=== PATIENT | male | born 1950 | race Caucasian/White ===

== ENCOUNTER 2018-10-18 16:55 | Inpatient (IN) ==
[2018-10-18] MEDS ORDERED: Ondansetron 4 MG/2 ML VIAL IVP PRN (20:46)
[2018-10-18] MEDS ORDERED: Naloxone 0.4 MG/ML INJ IVP PRN (20:46)
[2018-10-18] MEDS ORDERED: Acetaminophen 325 MG TABLET PO PRN (20:46)
[2018-10-18] MEDS ORDERED: *HR* HYDROcodone/Acet 5/325 mg TABLET PO PRN (20:46)
[2018-10-18] MEDS ORDERED: Albuterol 2.5 MG/3 ML NEBULIZER IH PRN (20:46)
[2018-10-18] MEDS ORDERED: Vancomycin 0 MG in 0.9 % Sodium Chloride 250 ML IVPB SCH (21:00)
[2018-10-18] MEDS ORDERED: Levofloxacin 750 MG/150 ML 750 MG/150 ML BAG IVPB SCH (21:00)
--- NOTE | 2018-10-18 21:01 | Internal Med History&Physical ---
Date of Encounter: 10/18/18 Time of Encounter: 19:50 Internal Medicine - H&P: HPI Chief complaint: right flank pain; dysuria Admitted From: Hospital to Hospital Transfer Plans for Post Hospital Care: Home History of present illness: Mr. Pettit is a 68 year old male who presents in transfer from [facility] ER for urolithiasis with hydronephrosis. He will need urologic intervention. 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 Upon arrival to the floor, I saw patient and discussed with him and his family the history of events. Patient was just discharged from [facility] 2 days ago after recovering from surgery from a cecal volvulus. Per patient and family, his postoperative course was uneventful. However, he did develop some pneumonia and has been on antibiotics postoperatively for pneumonia. He was feeling well until early this morning when he had sudden onset of right-sided flank pain, nausea, dysuria, and decreased urine output. Pain radiated from his right flank to his mid back and down to his right groin. He therefore came to the ER at [facility] in [place] where he had initial CT scan and blood work suggesting 8 x 5 mm UVJ stone with some associated hydronephrosis. He also has some postoperative changes and his the small bowel. There is also CT evidence confirming right lower lobe pneumonia. He denies any fevers or chills. He has been coughing productively sputum and has had some wheezing. He has been on oral antibiotics at home with improvement in his pneumonia symptoms. He denies any vomiting or diarrhea. He has had dry heaves and significant nausea, however. Pain is tolerable at this time. He denies any gross hematuria. He denies any prior history of kidney stones. Because of lack of urologic support at [facility], he was transferred here to [place] for urologic intervention and ongoing medical care. Past Med Surg Social Fam HX - Past Medical History Attestation: Yes The following information was validated with the patient. Source: patient, old records reviewed, obtained from family, other ([facility] ER records) Medical history: COPD, hypertension Additional medical history: heart murmor Psychiatric history: no psych history - Past Surgical History Surgical History: other (cecovolvulus) Additional surgical history: Left cheek - Social History Smoking Status: Current every day smoker Packs per day: 1 Smokeless Tobacco Status: No Alcohol use: rarely Drug use: none Current living situation: Home Activity Level: Independent ambulation Recent Out of Country Travel Within the Last 8 Weeks: No - Family History Mother Age: 93 Living Status: Still Living Hx Family Cancer: Yes Father Age at : 57 Cause of : war Sister Age: 70 Living Status: Still Living Internal Medicine - H&P: Meds Albuterol Sulfate [Albuterol Inhaler] 2 puff IH DAILY 06/26/18 [History] Cholecalciferol (D-3) [Vitamin D] 1,000 unit PO DAILY 06/26/18 [History] Losartan Potassium [Cozaar] 25 mg PO DAILY 06/26/18 [History] Tiotropium [place] [Spiriva Respimat] 2.5 gm IH DAILY 06/26/18 [History] Allergy/AdvReac Type Severity Reaction Status Date / Time No Known Allergies Allergy Unverified 02/20/18 11:07 - Constitutional Constitutional: no chills, no fever(s), no night sweats - EENT Eyes: no blurry vision, no change in vision Ears: no ear pain, no tinnitus Nose, mouth and throat: no nasal congestion, no sinus pressure, no sore throat - Cardiovascular Cardiovascular ROS IM: no chest pain, no dyspnea, no orthopnea, no syncope - Respiratory Respiratory: cough, wheezing, chest congestion, change in phlegm color, no dys pnea, no hemoptysis, no excessive phlegm production, no pain with cough - Gastrointestinal Gastrointestinal: nausea, no abdominal pain, no diarrhea, no hematemesis, no hematochezia, no melena, no vomiting - Genitourinary Genitourinary ROS male: difficulty urinating, dysuria, flank pain, urinary frequency, urinary urgency, no hematuria - Musculoskeletal Musculoskeletal ROS IM: no arthralgias, no back pain - Integumentary Integumentary IM: no rash, no jaundice - Neurological Neurological ROS: no disequilibrium, no dizziness, no focal weakness, no frequent falls, no headache(s) - Psychiatric Psychiatric: no anxiety, no depression - Endocrine Endocrine IM: no polydipsia, no polyphagia, no polyuria - Allergic/Immunologic Allergic/Immunologic: wheezing, no GI upset with certain foods - Constitutional Vitals: Temp Pulse Resp BP Pulse Ox 97.4 F L 71 16 160/83 96 10/18/18 20:37 10/18/18 20:37 10/18/18 20:37 10/18/18 20:37 10/18/18 20:37 General appearance: Present: cooperative, A&O X 3, pleasant, answers questions appropriately Exam: minimal flank pain presently; well hydrated; no acute distress - Head Head exam: Present: normal inspection - Eye Eye exam: Present: EOMI, PERRL. Absent: scleral icterus Pupils: Present: normal accommodation - ENT ENT exam: Present: mucous membranes dry, normal exam, normal oropharynx - Neck Neck exam general surgery: Present: full ROM, supple. Absent: tenderness, nuchal rigidity, thyromegaly - Respiratory Respiratory exam: Present: rales (right base; + egophony), wheezes (mild, rare, scattered wheezes). Absent: chest wall tenderness, respiratory distress - Cardiovascular Cardiovascular exam: Present: distant heart sounds, RRR, +S1, +S2, systolic murmur (grade 1-2). Absent: diastolic murmur - GI/Abdominal GI/Abdominal exam: Present: normal bowel sounds, soft, tenderness (post-op incisional pain -- minimal). Absent: guarding, hepatomegaly, mass, rebound, splenomegaly - Extremities Exam Extremities exam: Present: full ROM, normal capillary refill, normal inspection, warm, radial pulses palpable and symmetrical. Absent: calf tenderness, joint swelling, pedal edema, tenderness - Back Exam Back exam: Present: CVA tenderness (R), normal inspection. Absent: CVA tenderness (L) - Neurological Exam Neurological exam: Present: alert, CN II-XII intact, oriented X3, no focal deficits, strengths equal and symetr throughout - Psychiatric Psychiatric exam: Present: normal affect, normal mood - Skin Skin exam: Present: dry, intact, warm Internal Med - H&P Results - Labs Labs: I reviewed the records from [facility] and include the following: Sodium 140 Potassium 4.2 Chloride 101 Carbon dioxide 27 BUN 18 Glucose 125 Creatinine 1.2 LFT's unremarkable WBC 17.7 Hemoglobin 16.0 Hematocrit 46.5 Platelets 267 Lactic acid level 1.4 Urinalysis suggestive of large blood, specific gravity. 1.030 CT scan report reviewed suggesting 8 by 5 mm kidney stone at the UVJ junction with mild hydronephrosis. - EKG Data -: EKG Interpreted by Myself - EKG Data Prior EKG available for review: no EKG comments: 10/18/18 21:09 NSR; borderline IVCD; no acute ST-T changes ([facility] EKG) - Assessment and plan (1) Ureterovesical junction (UVJ) obstruction Current Visit: Yes Status: Acute Assessment and plan: 1. Will order U/A with urine culture. 2. Will place on IV antibiotics to cover and HCAP organisms. 3. IVF hydration, anti-emetics, and pain control. 4. Urology has already been consulted and will place for cystoscopy/stent tomorrow. 5. Monitor renal function. (2) HCAP (healthcare-associated pneumonia) Current Visit: Yes Status: Acute Assessment and plan: 1. Patient was already being treated with oral antibiotics for HCAP since discharge from [facility]. 2. Will order blood and sputum cultures. 3. Will place on IV Vancomycin, Zosyn, and Levaquin to cover HCAP and organisms. 4. De-escalate antibiotics pending culture results and clinical course. (3) COPD (chronic obstructive pulmonary disease) Current Visit: Yes Status: Chronic Assessment and plan: 1. Will provide oxygen, scheduled and PRN aerosols. 2. Antibiotics as above for pneumonia. 3. Patient with minimal wheezing now and does not have an acute flare -- as such, I do not feel he needs steroids presently. 4. Monitor clinically. Qualifiers: COPD type: emphysema Emphysema type: panlobular Qualified Code(s): J43.1 - Panlobular emphysema (4) Cardiac murmur Current Visit: Yes Status: Chronic Assessment and plan: 1. Given clinical picture and history of murmur, will order ECHO to evaluate for valvular dysfunction. 2. No records of prior ECHO in our medical records. (5) DVT prophylaxis Current Visit: Yes Status: Acute Assessment and plan: 1. Heparin SQ.
--- NOTE | 2018-10-18 21:17 | Urology - Consult Note ---
Date of Encounter: 10/19/18 Time of Encounter: 21:16 - Assessment and Plan (1) Ureterovesical junction (UVJ) obstruction Current Visit: Yes Status: Acute Assessment and plan: 8 mm right UVJ stone with hydronephrosis and pain. UA not suggestive of infection. Plan: Add on to tomorrow's OR scheduled for ureteroscopy holmium laser lithotripsy and stenting. Urology CN:HPI Consult date: 10/18/18 Requesting physician: Lalit Dawson History of present illness: Mr. Pettit is a 68 year old male who presents in transfer from [facility] ER for urolithiasis with hydronephrosis. He will need urologic intervention. 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 Patient was just discharged from [facility] 2 days ago after recovering from surgery from a cecal volvulus. Per patient and family, his postoperative course was uneventful. However, he did develop some pneumonia and has been on antibiotics postoperatively for pneumonia. He was feeling well until early this morning when he had sudden onset of right-sided flank pain, nausea, dysuria, and decreased urine output. Pain radiated from his right flank to his mid back and down to his right groin. He therefore came to the ER at [facility] in [place] where he had initial CT scan and blood work suggesting 8 x 5 mm UVJ stone with some associated hydronephrosis. He also has some postoperative changes and his the small bowel. There is also CT evidence confirming right lower lobe pneumonia. He denies any fevers or chills. He has been coughing productively sputum and has had some wheezing. He has been on oral antibiotics at home with improvement in his pneumonia symptoms. He denies any vomiting or diarrhea. He has had dry heaves and significant nausea, however. Pain is tolerable at this time. He denies any gross hematuria. He denies any prior history of kidney stones. Because of lack of urologic support at [facility], he was transferred here to [place] for urologic intervention and ongoing medical care. Past Med Surg Social Fam HX - Past Medical History Medical history: COPD, hypertension Additional medical history: heart murmor Psychiatric history: no psych history - Past Surgical History Surgical History: other (cecovolvulus) Additional surgical history: Left cheek - Social History Smoking Status: Current every day smoker Packs per day: 1 Smokeless Tobacco Status: No Alcohol use: rarely Drug use: none - Family History Mother Age: 93 Living Status: Still Living Hx Family Cancer: Yes Father Age at : 57 Cause of : war Sister Age: 70 Living Status: Still Living Medications and Allergies Albuterol Sulfate [Albuterol Inhaler] 2 puff IH DAILY 06/26/18 [History] Cholecalciferol (D-3) [Vitamin D] 1,000 unit PO DAILY 06/26/18 [History] Losartan Potassium [Cozaar] 25 mg PO DAILY 06/26/18 [History] Tiotropium [place] [Spiriva Respimat] 2.5 gm IH DAILY 06/26/18 [History] Allergy/AdvReac Type Severity Reaction Status Date / Time No Known Allergies Allergy Unverified 02/20/18 11:07 Review of Systems - Constitutional no chills, no fever(s) - EENT Nose, mouth and throat: no dizziness, no headache(s) - Cardiovascular no chest pain, no diaphoresis - Respiratory no cough, no dyspnea - Gastrointestinal abdominal pain - Genitourinary no genital pain, no urinary urgency - Musculoskeletal no muscle weakness, no numbness - Integumentary no erythema, no rash - Neurological no sensory deficit, no weakness - Hematologic/Lymphatic no easy bleeding, no easy bruising - Allergic/Immunologic no throat swelling, no wheezing Exam Initial Vital Signs Pulse Ox 95 10/18/18 20:26 - General physical appearance Present: well developed, well nourished, no distress - Eyes Present: normal ocular movement - ENT Present: normal nares, normal mucosa, no hearing loss - Neck Present: trachea midline - Respiratory Present: normal respiratory effort - Abdomen Abdomen: Present: distended - Integumentary Present: no rash, no growths - Neurologic Present: normal coordination - Musculoskeletal Present: normal gait Urology Results - Labs 10/19/18 03:40 10/19/18 03:40 All other labs normal. - Imaging CT scan - abdomen: report reviewed CT scan - pelvis: report reviewed Consult Discharge Plan - Plan [facility]Primary Care Provider] -
[2018-10-18] MEDS: Ipratropium/Albuterol Neb 3 ML IH SCH (21:54)
[2018-10-18] MEDS: 0.9 % Sodium Chloride 1,000 ML IVC SCH (22:07)
[2018-10-18 22:48] LABS: Bilirubin,Urine Negative (Negative); Blood,Urine Trace (Negative); Clarity,Urine Clear (Clear); Color,Urine Yellow (Yellow); Glucose,Urine (UA) Normal (Normal); Ketones,Urine Negative (Negative); Leukocyte Esterase,Urine Negative (Negative); Nitrite,Urine Negative (Negative); PH,Urine 5.5 pH Units (5.0-8.0); Protein,Urine 30 mg/dL (Neg-Trace); Specific Gravity,Urine > 1.030 (1.010-1.025); Urobilinogen,Urine Normal (Normal)
[2018-10-18 22:50] LABS: Bacteria,Urine None Seen per hpf (None-Few); Hyaline Casts,Urine None Seen per lpf (None-Few); Squamous Epithelial Cell,Urine Moderate per lpf (None-Few)
[2018-10-18] MEDS: Piperacillin/Tazobactam 3.375 GM in 0.9 % Sodium Chloride Mini Bag 100 ML IVPB SCH (23:50)
[2018-10-19] MEDS: Ipratropium/Albuterol Neb 3 ML IH SCH ×2 (03:56→10:58)
[2018-10-19 04:21] LABS: Basophils # 0.1 K/mcL (0.0-0.2); Basophils % 0.5 %; Eosinophils # 0.4 K/mcL (0.0-0.6); Eosinophils % 3.9 %; Hematocrit 40.1 % (37.5-50.1); Hemoglobin 13.6 g/dL (12.9-16.9); Immature Granulocytes % 0.4 % (0-4); Lymphocytes # 2.1 K/mcL (0.6-4.6); Lymphocytes % 18.4 %; Mean Corpuscular HGB Conc 33.9 g/dL (31.6-35.5); Mean Corpuscular Hemoglobin 31.1 pg (28.0-33.3); Mean Corpuscular Volume 91.6 fL (83.0-100.0); Mean Platelet Volume 8.8 fL (9.4-12.4); Neutrophils # 7.6 K/mcL (1.6-8.9); Platelet Count 247 K/mcL (140-400); Red Blood Count 4.38 M/mcL (4.19-5.50); Red Cell Distribution Width 12.7 % (11.5-14.5); Segmented Neutrophils % 67.8 %
[2018-10-19 04:26] LABS: INR 1.4; Prothrombin Time 15.2 Seconds (9.4-12.1)
[2018-10-19 04:28] LABS: Activated Partial Thrombo Time 29.9 Seconds (26.0-36.0)
[2018-10-19 04:37] LABS: Alanine Aminotransferase 18 Units/L (7-52); Albumin 3.4 g/dL (3.5-5.7); Albumin/Globulin Ratio 1.5 (1.1-2.2); Alkaline Phosphatase 49 Units/L (34-104); Aspartate Amino Transferase 16 Units/L (13-39); BUN/Creatinine Ratio 18 (6-26); Bilirubin,Total 0.4 mg/dL (0.3-1.0); Blood Urea Nitrogen 17 mg/dL (8-23); Calcium 8.4 mg/dL (8.6-10.3); Carbon Dioxide 26 mEq/L (23-29); Chloride 106 mEq/L (98-107); Globulin 2.3 g/dL (2.4-3.5); Glucose 90 mg/dL (70-105); Magnesium 2.2 mg/dL (1.6-2.6); Osmolality,Calculated 289 (280-300); Potassium 3.7 mEq/L (3.5-5.1); Sodium 139 mEq/L (136-145); Total Protein 5.7 g/dL (6.4-8.9); eGFR For Non-African Americans > 60 (> 60)
[2018-10-19] MEDS: *HR* Heparin 5,000 UNIT/ML VIAL SQ SCH ×2 (05:04→16:43)
[2018-10-19] MEDS: Piperacillin/Tazobactam 3.375 GM in 0.9 % Sodium Chloride Mini Bag 100 ML IVPB SCH ×2 (08:12→16:43)
[2018-10-19] MEDS: 0.9 % Sodium Chloride 1,000 ML IVC SCH (08:13)
--- NOTE | 2018-10-19 08:59 | Electrocardiograph Report ---
[address] [address] Test Date: 2018-10-18 Pat Name: Thiago Pettit Department: 113 Room: 3B Gender: M [employer] Resource [employer] Professor: : 1950 Requested By: Lalit Dawson Order Number: [id number] Reading MD: Eric Stark Measurements Intervals [place] Rate: 69 P: 18 TN: 163 QRS: 13 QRSD: 106 T: 60 QT: 410 QTc: 430 Interpretive Statements Sinus rhythm Intraventricular conduction delay Early R wave transition Electronically Signed On 10-19-2018 8:57:56 EST by Eric Stark
--- NOTE | 2018-10-19 09:36 | Internal Med Progress Note ---
Hospitalist Progress Note - Encounter Date of Encounter: 10/19/18 Time of Encounter: 09:35 - Subjective Interval History: Patient was seen and examined at bedside currently denies any pain or discomfort. He is to undergo a right ureteroscopic stone extraction with holmium laser lithotripsy, retrograde pyelogram, and right ureteral stent placement later this afternoon as an add on with urology. Patient does not appear to be in any respiratory distress at this time, due to recent surgery and multiple postoperative developments including pneumonia and urolithiasis with hydronephrosis patient requires close monitoring and is high risk for deteriora tion - Exam Vitals: Temp Pulse Resp BP Pulse Ox 98.2 F 66 14 127/71 95 10/19/18 06:37 10/19/18 06:37 10/19/18 06:37 10/19/18 06:37 10/19/18 06:37 Exam: GENERAL: Pleasant cooperative alert and oriented 3 HEENT: Head is normocephalic and atraumatic. Extraocular muscles are intact. Pupils are equal, round, and reactive to light and accommodation. NECK: Supple. No carotid bruits. No lymphadenopathy or thyromegaly. LUNGS: CTA, symmetrical expansion. Respirations easy and unlabored HEART: Regular rate and rhythm, S1, S2 systolic murmur faint 1/2 ABDOMEN: Soft, nontender, and nondistended. Positive bowel sounds. No hepatosplenomegaly was noted. EXTREMITIES: Without any cyanosis, clubbing, rash, lesions or edema. NEUROLOGIC: Cranial nerves II through XII are grossly intact. PSYCHIATRIC: Appropriate affect, denies SI/HI, without agitation or anxiety SKIN: No ulceration or induration present. - Assessment and Plan (1) HCAP (healthcare-associated pneumonia) Current Visit: Yes Status: Acute Assessment and Plan: 1. Patient was already being treated with oral antibiotics for HCAP since discharge from [facility]. 2. Will order blood and sputum cultures. 3. Will place on IV Vancomycin, Zosyn, and Levaquin to cover HCAP and organisms. 4. De-escalate antibiotics pending culture results and clinical course. 10/19 Continue with IV vein stenosis and Levaquin to cover H And organisms we can de-escalate pending culture results clinical course Blood Cultures are negative to date, sputum cultures are pending Oxygen as needed (2) Ureterovesical junction (UVJ) obstruction Current Visit: Yes Status: Acute Assessment and Plan: 1. Will order U/A with urine culture. 2. Will place on IV antibiotics to cover and HCAP organisms. 3. IVF hydration, anti-emetics, and pain control. 4. Urology has already been consulted and will place for cystoscopy/stent tomorrow. 5. Monitor renal function. 10/19 Urinalysis was not impressive Continue with IV hydration and antiemetics and pain control He is to undergo cystoscopy stent placement later today Monitor renal function (3) COPD (chronic obstructive pulmonary disease) Current Visit: Yes Status: Chronic Assessment and Plan: 1. Will provide oxygen, scheduled and PRN aerosols. 2. Antibiotics as above for pneumonia. 3. Patient with minimal wheezing now and does not have an acute flare -- as such, I do not feel he needs steroids presently. 4. Monitor clinically. 10/19 Oxygen as needed to maintain SPO2 greater than 90%-stop appear to be in any exacerbation at this time Antibiotic coverage for pneumonia Sputum cultures Bronchodilators as needed (4) Cardiac murmur Current Visit: Yes Status: Chronic Assessment and Plan: 1. Given clinical picture and history of murmur, will order ECHO to evaluate for valvular dysfunction. 2. No records of prior ECHO in our medical records. 10/19 Echo completed reveals Impressions: LVEF 60%. Normal LV chamber size, wall thickness and systolic function. Mild left ventricular diastolic dysfunction. Normal right ventricular structure and function. Mildly dilated left atrium. Mild-moderate mitral regurgitation due to mitral valve prolapse. Borderline pulmonary hypertension. (5) DVT prophylaxis Current Visit: Yes Status: Acute Assessment and Plan: 1. Heparin SQ. - Time Spent with Patient Total time spent is greater than 50% in coordination of care (as documented) at patient's floor/unit and/or counseling patient: Internal Medicine: Result - Labs CBC & Chem 7: 10/19/18 03:40 10/19/18 03:40 Labs: Short CBC 10/19/18 Range/Units 03:40 WBC 11.1 (4.3-11.1) K/mcL Hgb 13.6 (12.9-16.9) g/dL Hct 40.1 (37.5-50.1) % Plt Count 247 (140-400) K/mcL Neutrophils # 7.6 (1.6-8.9) K/mcL BMP 10/19/18 03:40 Sodium 139 Potassium 3.7 Chloride 106 Carbon Dioxide 26 BUN 17 Creatinine 0.94 Glucose 90 Calcium 8.4 L Liver Function 10/19/18 Range/Units 03:40 Total Bilirubin 0.4 (0.3-1.0) mg/dL AST 16 (13-39) Units/L ALT 18 (7-52) Units/L Alkaline Phosphatase 49 (34-104) Units/L Albumin 3.4 L (3.5-5.7) g/dL Urine 10/18/18 Range/Units 22:22 Urine Color Yellow (Yellow) Urine Clarity Clear (Clear) Urine pH 5.5 (5.0-8.0) pH Units Ur Specific Blue > 1.030 H (1.010-1.025) Urine Protein 30 H (Neg-Trace) mg/dL Urine Glucose (UA) Normal (Normal) mg/dL - ABG Interpretation ABG results: PT/INR, D-dimer PT 15.2 Seconds (9.4-12.1) H 10/19/18 03:40 Consult Discharge Plan - Plan [facility]errals: [facility] [Primary Care Provider] - (3) COPD (chronic obstructive pulmonary disease) Qualifiers: COPD type: emphysema Emphysema type: panlobular Qualified Code(s): J43.1 - Panlobular emphysema
--- NOTE | 2018-10-19 10:03 | Urology Progress Note ---
Date of Encounter: 10/19/18 Time of Encounter: 10:00 - Assessment and Plan (1) Ureterovesical junction (UVJ) obstruction Current Visit: Yes Status: Acute Assessment and plan: Patient is a 68-year-old male who presents with a right UVJ obstruction secondary to an 8 mm ureteral stone. Vital signs are currently stable and afebrile. Discussed surgical risks and benefits including bleeding, infection, scarring, stricture, damage to bladder or kidneys or surrounding structures, anesthesia effects, deep vein thrombosis, failure to completely extract stone. Patient verbalized understanding, and consent has been signed. Patient is prepared undergo a right ureteroscopic stone extraction with holmium laser lithotripsy, retrograde pyelogram, and right ureteral stent placement. Progress Note Subjective: no new complaints Narrative: Patient seen and examined sitting upright in bed in no apparent distress. Patient states pain is currently well controlled. Patient is voiding without difficulty. Patient has remain nothing by mouth for impending procedure. Objective Initial Vital Signs Pulse Ox 95 10/18/18 20:26 - General physical appearance Present: well developed, no distress, no pain - Respiratory Present: normal expansion, normal respiratory effort - Abdomen Present: soft, non tender - Integumentary Present: no rash, no abnormal pigmentation - Musculoskeletal Present: normal posture - Psychiatric Present: oriented to time, oriented to person, oriented to place, speech is normal, memory intact - Labs 10/19/18 03:40 10/19/18 03:40 Diabetes panel 10/19/18 Range/Units 03:40 Sodium 139 (136-145) mEq/L Potassium 3.7 (3.5-5.1) mEq/L Chloride 106 (98-107) mEq/L Carbon Dioxide 26 (23-29) mEq/L BUN 17 (8-23) mg/dL Creatinine 0.94 (0.70-1.30) mg/dL Glucose 90 (70-105) mg/dL Calcium 8.4 L (8.6-10.3) mg/dL AST 16 (13-39) Units/L ALT 18 (7-52) Units/L Alkaline Phosphatase 49 (34-104) Units/L Albumin 3.4 L (3.5-5.7) g/dL Calcium panel 10/19/18 Range/Units 03:40 Calcium 8.4 L (8.6-10.3) mg/dL Albumin 3.4 L (3.5-5.7) g/dL Pituitary panel 10/19/18 Range/Units 03:40 Sodium 139 (136-145) mEq/L Potassium 3.7 (3.5-5.1) mEq/L Chloride 106 (98-107) mEq/L Carbon Dioxide 26 (23-29) mEq/L BUN 17 (8-23) mg/dL Creatinine 0.94 (0.70-1.30) mg/dL Glucose 90 (70-105) mg/dL Calcium 8.4 L (8.6-10.3) mg/dL Adrenal panel 10/19/18 Range/Units 03:40 Sodium 139 (136-145) mEq/L Potassium 3.7 (3.5-5.1) mEq/L Chloride 106 (98-107) mEq/L Carbon Dioxide 26 (23-29) mEq/L BUN 17 (8-23) mg/dL Creatinine 0.94 (0.70-1.30) mg/dL Glucose 90 (70-105) mg/dL Calcium 8.4 L (8.6-10.3) mg/dL Total Bilirubin 0.4 (0.3-1.0) mg/dL AST 16 (13-39) Units/L ALT 18 (7-52) Units/L Alkaline Phosphatase 49 (34-104) Units/L Albumin 3.4 L (3.5-5.7) g/dL Consult Discharge Plan - Plan Referrals: [facility] [Primary Care Provider] -
[2018-10-19] MEDS ORDERED: Aminoglycoside Consult 1 EACH MC ONE (10:40)
[2018-10-19] MEDS ORDERED: Isovue-300 50 ML VIAL IVP ONE (19:36)
--- NOTE | 2018-10-19 19:44 | Anesthesia Evaluation PreOp ---
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) Alcohol Use: rarely Drug use: none Medications and Allergies Albuterol Sulfate [Albuterol Inhaler] 2 puff IH DAILY 06/26/18 [History] Cholecalciferol (D-3) [Vitamin D] 1,000 unit PO DAILY 06/26/18 [History] Losartan Potassium [Cozaar] 25 mg PO DAILY 06/26/18 [History] Tiotropium Wirt [Spiriva Respimat] 2.5 gm IH DAILY 06/26/18 [History] Allergy/AdvReac Type Severity Reaction Status Date / Time No Known Allergies Allergy Unverified 02/20/18 11:07 - Meds/Allergy Pre-op Review Medications Reviewed: Yes Allergies Reviewed: Yes Beta Blockers on Current Med List: No Anesthesia Results - Labs 10/19/18 03:40 10/19/18 03:40 Anesthesia Exam Vital Signs/O2 Sat, Most Current Temp Pulse Resp BP Pulse Ox 98.1 F 62 16 146/78 97 10/19/18 15:42 10/19/18 15:42 10/19/18 15:42 10/19/18 15:42 10/19/18 15:42 Weight: 74 KG - BMI 24 NPO (# of Hours): >8 - HEENT Mallampati: I (BEARDED) Teeth: Missing (ALL UPPER TEETH, LOWER MOLARS) - Cardiac Rhythm: Regular - Pulmonary Breath Sounds: bilateral Clear Respiratory Effort: Symmetrical - Additional Findings Active Medications Acetaminophen (Tylenol) 650 mg PO Q6HR PRN PRN Reason: Mild Pain/Fever Stop: 04/19/19 20:47 Hydrocodone Bitart/Acetaminophen ([place] 5-325 Mg) 1 tab PO Q6HR PRN PRN Reason: Moderate Pain Stop: 04/19/19 20:47 Last Admin: 10/19/18 08:21 Dose: 1 tab Albuterol Sulfate (Proventil Neb) 2.5 mg IH Q2H PRN; Protocol PRN Reason: Shortness Of Breath/Wheezing Stop: 04/19/19 20:47 Albuterol Sulfate (Albuterol Inhaler) 2 puff IH [id number] PRN PRN Reason: Shortness Of Breath Stop: 04/20/19 12:01 Heparin Sodium (Porcine) (Heparin) 5,000 unit SQ Q12HR UMM Stop: 04/20/19 06:01 Last Admin: 10/19/18 16:43 Dose: 5,000 unit Hydralazine HCl (Hydralazine) 10 mg IVP Q6HR PRN PRN Reason: Hypertension Stop: 04/19/19 20:54 Piperacillin Sod/Tazobactam (Sod 3.375 gm/ Sodium Chloride) 100 mls @ 25 mls/hr IVPB Q8HR UMM Stop: 04/20/19 00:01 Last Admin: 10/19/18 16:43 Dose: 25 mls/hr Vancomycin HCl 1,000 mg/ (Sodium Chloride) 250 mls @ 167 mls/hr IVPB Q12H UMM; Protocol Stop: 04/20/19 14:01 Last Admin: 10/19/18 14:35 Dose: 167 mls/hr Levofloxacin/Dextrose (Levaquin Premix 750mg/150 Ml) 750 mg in 150 mls @ 100 mls/hr IVPB Q24H UMM; Protocol Stop: 04/19/19 21:01 Naloxone HCl (Narcan) 0.4 mg IVP Q2MIN PRN PRN Reason: SEE COMMENTS Stop: 04/19/19 20:47 Ondansetron HCl (Zofran) 4 mg IVP Q6HR PRN; Protocol PRN Reason: Nausea Stop: 04/19/19 20:47 Vancomycin HCl (Vancocin) 0 each IVPB RPHPROT PRN PRN Reason: PULSE DOSE Stop: 04/20/19 00:43 Anesthesia Assess/Plan ASA Score: 3 Anesthetic Plan: General Monitoring Plan: Standard Monitors Recovery Plan: PACU Anes Supervising Prov Stmt: Patient informed and consented. Risks, benefits, and alternatives discussed. Patient wishes to proceed.
[2018-10-19] MEDS ORDERED: *HR* FentaNYL (PF) 100 MCG/2 ML VIAL ONE (19:55)
[2018-10-19] MEDS ORDERED: *HR* Propofol 200 MG/20 ML VIAL IVP ONE (19:55)
[2018-10-19] MEDS ORDERED: Dexamethasone 4 MG/ML VIAL ONE (19:59)
[2018-10-19] MEDS ORDERED: Ondansetron 4 MG/2 ML VIAL ONE (19:59)
[2018-10-19] MEDS ORDERED: Lidocaine -MPF 2% 2 ML VIAL ONE (19:59)
[2018-10-19] MEDS ORDERED: *HR* Labetalol 20 MG/4 ML SYRINGE IVP PRN ×2 (20:05→23:55)
[2018-10-19] MEDS ORDERED: *HR* OxyCODONE Immed Rel 5 MG TABLET PO PRN ×2 (20:05→23:55)
[2018-10-19] MEDS ORDERED: *HR* HYDROmorphone (PF) 1 MG/ML SYRINGE IVP PRN ×2 (20:05→23:55)
[2018-10-19] MEDS ORDERED: *HR* PHENYLEPHRINE 1,000 MCG/10 ML SYRINGE IVP ONE (20:08)
--- NOTE | 2018-10-19 20:42 | Operative Note ---
Date of procedure: 10/19/18 Pre-op diagnosis: right ureteral calculus Post-op diagnosis: same Procedure: Cystoscopy, right retrograde ureteral pyelography with intraoperative interpretation of radiographic images by surgeon in real time to facilitate procedure, right ureteroscopy, holmium laser lithotripsy, right double-J stent placement Implants: 6 x 26 right jj stent Complications: none Anesthesia: GETA Surgeon: Parmjit Devries Was there an contact center assistant present: No Estimated blood loss (cc): 0 Specimen: none Condition: stable Disposition: PACU Procedure in Detail: The patient was brought to the operating theater placed on table in supine position. This identified by name and say general anesthetic. The patient placed dorsal lithotomy prepped and draped in normal sterile fashion. The cystoscope was inserted into the urethral meatus and advanced with the bladder under direct visualization. There were no mucosal abnormalities of the bladder or urethra. An open-ended catheter was placed the tip of the right ureteral orifice and with gentle injection contrast a right retrograde ureteropyelogram was performed. Intraoperative interpretation of radiographic images in real time revealed hydroureteronephrosis with a filling defect at the distal ureter consistent with stone seen on previous CT. There is tortuosity of the ureter at the level of the iliacs. No strictures, filling defects suspicious for tumor or other stones were appreciated. Based on these findings ureteroscopy and holmium laser lithotripsy was indicated. At this point under fluoroscopic guidance a Glidewire was advanced the right renal pelvis. Alongside the Glidewire under direct vision a rigid ureteroscope was advanced. The stone was encountered in the distal ureter. Using a 365 holmium laser fiber on a setting of 0.8 and 8 the stone was easily fragmented the multiple small pieces which were felt to be of passable size. At this point Allis was removed except for the existing Glidewire. Over the Glidewire and under fluoroscopic guidance a 6 x 26stent was advanced. Once the stent was felt in good position the Glidewire was removed. Fluoroscopy confirmed good curls the stent in the upper pole of the right kidney and bladder. This was felt to be a satisfactory result. Thus, this ended the operative procedure.
--- NOTE | 2018-10-19 20:56 | Urology Progress Note ---
Date of Encounter: 10/19/18 Time of Encounter: 20:55 - Assessment and Plan (1) Ureterovesical junction (UVJ) obstruction Current Visit: Yes Status: Acute Assessment and plan: Okay to discharge to home post procedure from urology standpoint. Scripts for ciprofloxacin and oxybutynin placed on patient chart. My office will arrange for outpatient follow-up. Objective Initial Vital Signs Pulse Ox 95 10/18/18 20:26 - Labs 10/19/18 03:40 10/19/18 03:40 Diabetes panel 10/19/18 Range/Units 03:40 Sodium 139 (136-145) mEq/L Potassium 3.7 (3.5-5.1) mEq/L Chloride 106 (98-107) mEq/L Carbon Dioxide 26 (23-29) mEq/L BUN 17 (8-23) mg/dL Creatinine 0.94 (0.70-1.30) mg/dL Glucose 90 (70-105) mg/dL Calcium 8.4 L (8.6-10.3) mg/dL AST 16 (13-39) Units/L ALT 18 (7-52) Units/L Alkaline Phosphatase 49 (34-104) Units/L Albumin 3.4 L (3.5-5.7) g/dL Calcium panel 10/19/18 Range/Units 03:40 Calcium 8.4 L (8.6-10.3) mg/dL Albumin 3.4 L (3.5-5.7) g/dL Pituitary panel 10/19/18 Range/Units 03:40 Sodium 139 (136-145) mEq/L Potassium 3.7 (3.5-5.1) mEq/L Chloride 106 (98-107) mEq/L Carbon Dioxide 26 (23-29) mEq/L BUN 17 (8-23) mg/dL Creatinine 0.94 (0.70-1.30) mg/dL Glucose 90 (70-105) mg/dL Calcium 8.4 L (8.6-10.3) mg/dL Adrenal panel 10/19/18 Range/Units 03:40 Sodium 139 (136-145) mEq/L Potassium 3.7 (3.5-5.1) mEq/L Chloride 106 (98-107) mEq/L Carbon Dioxide 26 (23-29) mEq/L BUN 17 (8-23) mg/dL Creatinine 0.94 (0.70-1.30) mg/dL Glucose 90 (70-105) mg/dL Calcium 8.4 L (8.6-10.3) mg/dL Total Bilirubin 0.4 (0.3-1.0) mg/dL AST 16 (13-39) Units/L ALT 18 (7-52) Units/L Alkaline Phosphatase 49 (34-104) Units/L Albumin 3.4 L (3.5-5.7) g/dL Consult Discharge Plan - Plan [facility] Care Provider[facility] - Prescriptions: Ciprofloxacin [Cipro] 500 mg PO BID 3 Days #6 tablet Ciprofloxacin [Cipro] 500 mg PO BID 3 Days #6 tablet Oxycodone HCl/Acetaminophen [Percocet 5-325 mg Tablet] 1 each PO Q4-6H PRN 2 Days #10 tablet PRN Reason: pain Oxycodone HCl/Acetaminophen [Percocet 5-325 mg Tablet] 1 each PO Q4-6H PRN 2 Days #10 tablet PRN Reason: pain
[2018-10-19] MEDS ORDERED: Levofloxacin 750 MG/150 ML 750 MG/150 ML BAG IVPB SCH (21:00)
--- NOTE | 2018-10-19 21:54 | Anesthesia Evaluation Post Op ---
Date of Encounter: 10/19/18 Time of Encounter: 21:15 - Discharge PostOp Status: Transfer Patient to floor (Patient's vital signs have been reviewed. Patient is stable postoperatively and has adequately recovered from anesthesia. Patient is determined to have stable airway patency and respiratory function including respiratory rate and oxygen saturation. Patient has a stable heart rate, blood pressure and adequate hydration. Patients mental status is acceptable. Patients temperature is appropriate. Pain and nausea are adequately controlled.)
[2018-10-19] MEDS ORDERED: *HR* HYDROcodone/Acet 5/325 mg TABLET PO PRN (23:55)
[2018-10-19] MEDS ORDERED: Naloxone 0.4 MG/ML INJ IVP PRN (23:55)
[2018-10-19] MEDS ORDERED: Albuterol 2.5 MG/3 ML NEBULIZER IH PRN (23:55)
[2018-10-19] MEDS ORDERED: Acetaminophen 325 MG TABLET PO PRN (23:55)
[2018-10-19] MEDS ORDERED: Ondansetron 4 MG/2 ML VIAL IVP PRN (23:55)
[2018-10-20] MEDS: Piperacillin/Tazobactam 3.375 GM in 0.9 % Sodium Chloride Mini Bag 100 ML IVPB SCH ×2 (01:50→08:04)
[2018-10-20 03:46] LABS: Basophils # 0.1 K/mcL (0.0-0.2); Basophils % 0.5 %; Eosinophils % 0.3 %; Hematocrit 40.9 % (37.5-50.1); Hemoglobin 13.8 g/dL (12.9-16.9); Immature Granulocytes % 0.4 % (0-4); Lymphocytes # 0.9 K/mcL (0.6-4.6); Lymphocytes % 9.5 %; Mean Corpuscular HGB Conc 33.7 g/dL (31.6-35.5); Mean Corpuscular Hemoglobin 30.9 pg (28.0-33.3); Mean Corpuscular Volume 91.5 fL (83.0-100.0); Mean Platelet Volume 8.8 fL (9.4-12.4); Monocytes # 0.3 K/mcL (0.0-1.3); Monocytes % 3.3 %; Platelet Count 244 K/mcL (140-400); Red Blood Count 4.47 M/mcL (4.19-5.50); Red Cell Distribution Width 12.6 % (11.5-14.5)
[2018-10-20 04:02] LABS: BUN/Creatinine Ratio 14 (6-26); Blood Urea Nitrogen 12 mg/dL (8-23); Calcium 8.7 mg/dL (8.6-10.3); Carbon Dioxide 25 mEq/L (23-29); Chloride 105 mEq/L (98-107); Glucose 222 mg/dL (70-105); Osmolality,Calculated 287 (280-300); Potassium 4.3 mEq/L (3.5-5.1); Sodium 135 mEq/L (136-145); eGFR For Non-African Americans > 60 (> 60)
--- NOTE | 2018-10-20 04:12 | Event Note ---
Date of Encounter: 10/19/18 Time of Encounter: 22:06 Alerted by pts. nurse RUBEN Portillo that patient had lithotripsy this evening for renal stone. Patient was post surgery early in day but got pushed back until 20:00 in the evening. Patient returned to the unit following lithotripsy. Dr. Devries informed patient that it was all right for him to go home tonight. Nurse was inquiring if patient would be discharged this evening. Informed nurse that pt. will not be discharged tonight d/t exceptionally heavy admissions and floor coverage.
[2018-10-20] MEDS ORDERED: *HR* Heparin 5,000 UNIT/ML VIAL SQ SCH (06:00)
[2018-10-20 07:53] VITALS: BP 136/74
--- NOTE | 2018-10-20 09:48 | Discharge Summary ---
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 He did have a pneumonia which was also treated for. He was discharged with home 2 days when he did a Arians Seconal several right-sided flank pain was treated with urolithiasis and hydronephrosis seen by urology underwent cystoscopy with stent. He is sent home on Levaquin for pneumonia and urology coverage as well as oxybutynin. He will follow-up with urology as outpatient Orders not resulted at time of discharge: Pending orders 10/18/18 20:46 Culture,Sputum with Gram Stain [RM] Stat 10/18/18 21:19 Culture,Blood [BC] Stat 10/20/18 13:00 Vancomycin,Trough Timed Date of Encounter: 10/20/18 Time of Encounter: 09:43 - Discharge Diagnosis (1) HCAP (healthcare-associated pneumonia) Priority: Secondary Status: Acute (2) Ureterovesical junction (UVJ) obstruction Priority: Primary Status: Acute (3) COPD (chronic obstructive pulmonary disease) Priority: Secondary Status: Chronic Qualifiers: COPD type: emphysema Emphysema type: panlobular Qualified Code(s): J43.1 - Panlobular emphysema (4) Cardiac murmur Priority: Secondary Status: Chronic Hospital course: Mr. 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 He was discharged and was doing well for approximately 2 days until he was awakened with right-sided flank pain nausea and dysuria decreased urine output. He presented to [facility] emergency department CT scan was completed suggested 8 x 5 mm UVJ stone with some associated hydronephroses. CT also confirmed right lower lobe pneumonia. He was transferred to [facility] for further urological treatment he was admitted was given broad spectrum antibiotics of vancomycin and Zosyn and Levaquin to cover pneumonia and urology. Urologist was consulted patient underwent right ureteroscopic stone extraction with laser lithotripsy and right ureteral stent placement. Patient tolerated procedure well he has been afebrile no leukocytosis lung sounds clear no oxygen sats of been stable. He did have a noted murmur -echo was completed within normal limits-. Advised patient follow up with urology as well as primary care provider. I did discuss with urology concerning antibiotic coverage he will go home on Levaquin for both pneumonia and urological coverage also clarified patient will go home on oxy codone I did discuss with patient concerning smoking cessation and offered patient nicotine patch or other cessation aids however patient declined at this time. Encouraged patient to stop smoking. Currently he is hemodynamically stable and he is ready for discharge. - Time Spent with Patient Total time spent providing and/or coordinating discharge services: - Discharge Medications Prescriptions: levoFLOXacin [Levaquin] 750 mg PO DAILY #8 tablet Oxycodone HCl/Acetaminophen [Percocet 5-325 mg Tablet] 1 each PO Q4-6H PRN 2 Days #10 tablet PRN Reason: pain Oxycodone HCl/Acetaminophen [Percocet 5-325 mg Tablet] 1 each PO Q4-6H PRN 2 Days #10 tablet PRN Reason: pain Home Medications: Albuterol Sulfate [Albuterol Inhaler] 2 puff IH DAILY 06/26/18 [History] Cholecalciferol (D-3) [Vitamin D] 1,000 unit PO DAILY 06/26/18 [History] Losartan Potassium [Cozaar] 25 mg PO DAILY 06/26/18 [History] Tiotropium Loris [Spiriva Respimat] 2.5 gm IH DAILY 06/26/18 [History] Oxycodone HCl/Acetaminophen [Percocet 5-325 mg Tablet] 1 each PO Q4-6H PRN 2 Days #10 tablet 10/19/18 [Rx] Oxycodone HCl/Acetaminophen [Percocet 5-325 mg Tablet] 1 each PO Q4-6H PRN 2 Days #10 tablet 10/19/18 [Rx] levoFLOXacin [Levaquin] 750 mg PO DAILY #8 tablet 10/20/18 [Rx] Allergies/Adverse Reactions: Allergy/AdvReac Type Severity Reaction Status Date / Time No Known Allergies Allergy Unverified 02/20/18 11:07 Date of admission: 10/18/18 20:46 [facility] care physician: [facility] Consults: 10/18/18 20:50 Consult to Physician [CONS] Routine Consulting Provider: Parmjit Devries Reason for Consult: urolithiasis; hydronephrosis Call Completed: Yes Discharging clinician: Yulissa Peña Anticipated date of discharge: 10/20/18 - Constitutional Vitals: Temp Pulse Resp BP Pulse Ox 98.0 F 63 18 136/74 96 10/20/18 07:51 10/20/18 07:51 10/20/18 07:51 10/20/18 07:51 10/20/18 07:51 General appearance: Present: cooperative, A&O X 3, pleasant, answers questions appropriately Exam: GENERAL: Pleasant cooperative alert and oriented 3 HEENT: Head is normocephalic and atraumatic. Extraocular muscles are intact. Pupils are equal, round, and reactive to light and accommodation. NECK: Supple. No carotid bruits. No lymphadenopathy or thyromegaly. LUNGS: CTA, symmetrical expansion. Respirations easy and unlabored HEART: Regular rate and rhythm, S1, S2 without murmur. ABDOMEN: Soft, nontender, and nondistended. Positive bowel sounds. No hepatosplenomegaly was noted.-Abdominal dressing is dry and intact no redness swelling or drainage noted to mid abdominal incision EXTREMITIES: Without any cyanosis, clubbing, rash, lesions or edema. NEUROLOGIC: Cranial nerves II through XII are grossly intact. PSYCHIATRIC: Appropriate affect, denies SI/HI, without agitation or anxiety SKIN: No ulceration or induration present. - Patient Status Disposition: Home, Self-Care Condition: Good Functional capacity at discharge: independent ambulation Overall status at discharge: patient is back to baseline - Discharge Instructions Instructions: Chronic Obstructive Pulmonary Disease (DC), Pneumonia (DC) Follow [facility] With: [facility] [Primary Care Provider[facility] - - Diet and Activity Activity: increase activity as tolerated Diet: advance to your usual diet
[2018-10-20] MEDS ORDERED: Levofloxacin 750 MG/150 ML 750 MG/150 ML BAG IVPB SCH (21:00)
== END 2018-10-20 10:41 | disposition home or self-care (01) | DRG 659 ==
LOC: 3BNU
PROVIDERS: ADMIT Internal Medicine; ATTEND Internal Medicine